=== PATIENT | male | born 1995 ===

== ENCOUNTER 2017-01-25 22:50 | Emergency (ER) | payer MEDICAID, OTHER ==
[2017-01-25] MEDS ORDERED: Tetan/Diph/Pertus SYR(Tdap)* 0.5 ML SYR(BOOSTRIX) use SYR IM ONE (23:33)
--- NOTE | 2017-01-25 23:49 | ED ---
Laceration/Wound HPI - HPI Summary HPI Summary: 21M presents with laceration to top of right foot s/p hitting on a sword on ground. does not know when tetanus was. Denies any numbness or tingling and has full ROM of his extremities. - History of Current Complaint Time Seen by Provider: 01/25/17 23:33 Pain Intensity: 1 - Allergy/Home Medications Allergies/Adverse Reactions: Allergies Allergy/AdvReac Type Severity Reaction Status Date / Time No Known Allergies Allergy Verified 05/18/15 09:49 PMH/Surg Hx/FS Hx/Imm Hx Endocrine/Hematology History: Denies: Hx Anticoagulant Therapy Cardiovascular History: Denies: Hx Hypertension Infectious Disease History: No Infectious Disease History: Denies: Traveled Outside the [place] in Last 30 Days - Family History Known Family History: Negative: Cardiac Disease - Social History Alcohol Use: Rare Substance Use Type: Reports: None Smoking Status (MU): Never Smoked Tobacco Review of Systems Negative: Fever Negative: Chest Pain Negative: Shortness Of Breath Positive: Other - laceration of right foot All Other Systems Reviewed And Are Negative: Yes Physical Exam Vital Signs On Initial Exam: Initial Vitals Temp Pulse Resp BP Pulse Ox 97 F 92 16 169/81 98 01/25/17 22:50 01/25/17 22:50 01/25/17 22:50 01/25/17 22:50 01/25/17 22:50 Appearance: Positive: Well-Appearing Skin: Positive: Warm, Dry, Other - 4 cm laceration by 1/4 width that ends in 3 cm abrasion Head/Face: Positive: Normal Head/Face Inspection Eyes: Positive: Normal, Conjunctiva Clear Respiratory/Lung Sounds: Positive: Clear to Auscultation, Breath Sounds Present Cardiovascular: Positive: Normal, RRR Musculoskeletal: Positive: Strength/ROM Intact - of right foot, Other - good pulses, capillary refill <2secs Procedures - Laceration/Wound Repair 1 Location: Other - right foot Description: Linear Anesthesia: Local, 1.0% Length, Depth and Shape: 4 cm laceration by 1/4 width that ends in 3 cm abrasion Betadine Prep?: Yes Irrigated w/ Saline (ccs): 1,000 Laceration/Wound Explored: clean Closure: SteriStrips, Single Layer Suture Type: Prolene - 4-0 Number of Sutures: 4 Layer Closure?: No Diagnostics - Vital Signs Vital Signs Temp Pulse Resp BP Pulse Ox 01/25/17 22:50 97 F 92 16 169/81 98 - Laboratory Lab Statement: Any lab studies that have been ordered have been reviewed, and results considered in the medical decision making process. Laceration Repair Course/Dx - Course Course Of Treatment: 21M presents with laceration to right foot. gave tetanus. cleaned area and placed 4 sutures on area and 3 steristrips on abrasion part of wound, told to return in 10-14 days and that area can scar, patient understands and agrees with plan - Differential Dx Differental Diagnoses: Abrasion, Avulsion, Laceration - Clinical Impression Provider Diagnoses: Laceration of right foot Discharge - Discharge Plan Condition: Good Disposition: HOME Patient Education Materials: Care For Your Stitches (ED) Referrals: Robert Almeida MD [Primary Care Provider] - Additional Instructions: Take Tylenol or ibuprofen for pain every 4 hours Keep area clean and dry for 48 hours Can remove steristrips in 5 days Return to ED or primary in 10-14 days to have sutures removed Return to ED if develop signs of infection such as fever, spreading redness, or pus.
[2017-01-26 01:58] VITALS: BP 130/78
== END 2017-01-26 00:40 | disposition home or self-care (01) ==
LOC: ED 22:50
DX: S91.311A Laceration without foreign body, right foot, initial encounter (principal); W45.8XXA Other foreign body or object entering through skin, initial encounter; Y93.9 Activity, unspecified; Y92.9 Unspecified place or not applicable; Y99.9 Unspecified external cause status
CPT/HCPCS: 12002; 90471; 90715; 99282